=== PATIENT | male | born 1935 | race Hispanic/Latino ===

== ENCOUNTER → 2017-07-22 | Day surgery (SDC) | payer MEDICARE ==
[2017-07-15 15:40] LABS: BASOPHILS % 0.4 % (0.0-1.0); EOSINOPHILS # (AUTO) 0.1 (0.0-0.4); EOSINOPHILS % 3.1 % (0.0-6.0); HEMATOCRIT 35.1 % (38.2-49.6); HEMOGLOBIN 11.9 g/dL (14.0-18.0); LYMPHOCYTES # (AUTO) 1.4 (1.0-3.2); MEAN CORPUSCULAR HEMOGLOBIN 31.5 pg (28-32); MEAN CORPUSCULAR HGB CONC 33.9 g/dL (31-35); MEAN CORPUSCULAR VOLUME 92.9 fL (81-99); MONOCYTES # (AUTO) 0.6 (0.2-0.8); MONOCYTES % 13.8 % (4.4-11.3); NEUTROPHILS # (AUTO) 2.4 (2.1-6.9); NEUTROPHILS % 52.5 % (38.7-80.0); PLATELET COUNT 124 x10e3/uL (140-360); RED BLOOD COUNT 3.78 x10e6/uL (4.3-5.7)
[2017-07-15 15:52] LABS: ANION GAP 12.9 mmol/L (8-16); CREATININE, SERUM 1.35 mg/dL (0.72-1.25); POTASSIUM 3.9 mmol/L (3.5-5.1)
--- NOTE | 2017-07-15 16:14 | Diagnostic Imaging Report ---
PROCEDURE: Frontal and lateral views of the chest. COMPARISON: None. INDICATIONS: PREOPERATIVE CHEST XRAY FOR HYDROCOLECTOMY FINDINGS: Lines/tubes: Left chest wall cardiac pacer with leads overlying the right atrium and right ventricle. Lungs: The lungs are well inflated and clear. There is no evidence of pneumonia or pulmonary edema. Pleura: There is no pleural effusion or pneumothorax. Heart and mediastinum: The heart is moderately enlarged. Median sternotomy wires and surgical clips projecting over the mediastinum likely reflect prior CABG. The inferior-most sternotomy wire is broken, noted on lateral view. Bones: No acute bony abnormality. IMPRESSION: 1. No acute cardiopulmonary disease. 2. Left chest wall cardiac pacer. 3. Findings of prior CABG. 4. Cardiomegaly. Dictated by: Timothy Lockwood M.D. on 07/15/2017 at 16:23 Electronically approved by: Timothy Lockwood M.D. on 07/15/2017 at 16:23
[~2017-07-22] MED LIST: BUPIVACAINE HCL 0.5% INJ 30 ML VIAL INJ ONE; CARVEDILOL12.5 MG PO; CEFAZOLIN SOD 1 GM VIAL ONE; CEFTRIAXONE SOD 1 GM VIAL ONE; DESFLURANE 240 ML BTL INH ONE; DEXAMETHASONE SOD PHOS INJ 4 MG/ML VIAL ONE; DOXAZOSIN MESYLA2 MG PO; FENTANYL CITRATE/PF 100MCG/2 ML INJ ONE; FERROUS SULFAT325 MG PO; FLUNISOLIDE25 ML; FUROSEMIDE40 MG PO; HYDROCHLOROTHIA25 MG PO; LIDOCAINE HCL 1% LOCAL INJ 20 ML VIAL ONE; LIDOCAINE HCL 2% LOCAL INJ 5 ML SDV VIAL INJ ONE; LOSARTAN POTASS25 MG PO; METFORMIN HCL500 M2 PO; NITROGLYCERIN0.4 MG SL; OMEPRAZOLE40 MG PO; ONDANSETRON HCL INJ 2 MG/ML VIAL ONE; PROPOFOL IV EMULSION 10 MG/ML 20 ML VIAL ONE; RANEXA500 MG PO; SIMVASTATIN20 MG PO; WARFARIN SODIUM2 MG PO
--- OUTSIDE RECORDS SUMMARY | 2017-07-22 07:15 | XMS REPORT ---
Author Author [facility] Address Unknown Phone Unavailable Care Team Providers Care Dealer Relationship Manager Name Role Phone TERRANCE MURILLO Unavailable Unavailable PAM CROCKETT Unavailable Unavailable Problems This patient has no known problems. Allergies, Adverse Reactions, Alerts This patient has no known allergies or adverse reactions. Medications This patient has no known medications. Results Test Description Test Time Test Comments Text Results Atomic Results Result Comments TSH 2017-05-27 15:37:00 THYROID STIMULATING HORMONE (BEAKER) (test mqlu=401) 0.91 uIU/mL 0.35-4.94 HEMOGLOBIN [id number] 13:29:00* Test Item Value Reference Range Comments HEMOGLOBIN A1C (BEAKER) (test hghh=262) 6.9 % 4.3-6.1 B-TYPE NATRIURETIC FACTOR (BNP)2017-05-27 11:38:00* Test Item Value Reference Range Comments B-TYPE NATRIURETIC PEPTIDE (BEAKER) (test zubk=336) 125 pg/mL 0-100 LIPID [id number] 11:32:00* Test Item Value Reference Range Comments TRIGLYCERIDES (BEAKER) (test tdqk=383) 70 mg/dL CHOLESTEROL (BEAKER) (test vrwa=804) 105 mg/dL HDL CHOLESTEROL (BEAKER) (test wkgv=189) 48 mg/dL LDL CHOLESTEROL CALCULATED (BEAKER) (test gwgp=093) 43 mg/dL Triglyceride Reference Range: Low Risk <150 Borderline 150-199 High Risk 200-499 Very High Risk >=500Cholesterol Reference Range: Low Risk <200 Borderline 200-239 High Risk >240HDL Cholesterol Reference Range: Low Risk >=60 High Risk <40LDL Cholesterol Reference Range: Optimal <100 Near Optimal 100-129 Borderline 130-159 High 160-189 Very High >=190 BASIC METABOLIC [id number] 11:32:00* Test Item Value Reference Range Comments SODIUM (BEAKER) (test ijok=899) 123 meq/L 136-145 POTASSIUM (BEAKER) (test bymx=211) 3.9 meq/L 3.5-5.1 CHLORIDE (BEAKER) (test gdjs=578) 88 meq/L 98-107 CO2 (BEAKER) (test ufbc=175) 28 meq/L 22-29 BLOOD UREA NITROGEN (BEAKER) (test xvna=196) 13 mg/dL 7-21 CREATININE (BEAKER) (test dyrn=961) 1.07 mg/dL 0.57-1.25 GLUCOSE RANDOM (BEAKER) (test sbim=462) 105 mg/dL 70-105 CALCIUM (BEAKER) (test aazj=159) 8.8 mg/dL 8.4-10.2 EGFR (BEAKER) (test johk=1228) 67 mL/min/1.73 sq m ESTIMATED GFR IS NOT ACCURATE CREATININE CLEARANCE IN PREDICTING GLOMERULAR FILTRATION RATE. ESTIMATED GFR IS NOT APPLICABLE FOR DIALYSIS PATIENTS. PROTHROMBIN TIME/[id number] 10:56:00* Test Item Value Reference Range Comments PROTIME (BEAKER) (test xsej=632) 16.3 seconds 11.7-14.7 INR (BEAKER) (test yryb=077) 1.3 <=5.9 RECOMMENDED COUMADIN/WARFARIN INR THERAPY RANGESSTANDARD DOSE: 2.0 - 3.0 Includes: PROPHYLAXIS for venous thrombosis, systemic embolization; TREATMENT for venous thrombosis and/or pulmonary embolus.HIGH RISK: Target INR is 2.5-3.5 for patients with mechanical heart valves.Within 24 hours, if on CoumadinCBC W/ PLT COUNT & AUTO [id number] 10:50:00* Test Item Value Reference Range Comments WHITE BLOOD CELL COUNT (BEAKER) (test vtsq=142) 4.7 K/ L 3.5-10.5 RED BLOOD CELL COUNT (BEAKER) (test qjkq=127) 3.89 M/ L 4.63-6.08 HEMOGLOBIN (BEAKER) (test xhqb=176) 12.1 GM/DL 13.7-17.5 HEMATOCRIT (BEAKER) (test vqkx=233) 34.7 % 40.1-51.0 MEAN CORPUSCULAR VOLUME (BEAKER) (test ftzq=818) 89.2 fL 79.0-92.2 MEAN CORPUSCULAR HEMOGLOBIN (BEAKER) (test utjb=596) 31.1 pg 25.7-32.2 MEAN CORPUSCULAR HEMOGLOBIN CONC (BEAKER) (test kjlc=492) 34.9 GM/DL 32.3- 36.5 RED CELL DISTRIBUTION WIDTH (BEAKER) (test rxmm=262) 12.2 % 11.6-14.4 PLATELET COUNT (BEAKER) (test qinx=176) 148 K/CU MM 150-450 MEAN PLATELET VOLUME (BEAKER) (test hkud=496) 8.7 fL 9.4-12.4 NUCLEATED RED BLOOD CELLS (BEAKER) (test xquf=853) 0 /100 WBC 0-0 NEUTROPHILS RELATIVE PERCENT (BEAKER) (test npmt=541) 58 % LYMPHOCYTES RELATIVE PERCENT (BEAKER) (test ssgh=637) 26 % MONOCYTES RELATIVE PERCENT (BEAKER) (test lces=135) 13 % EOSINOPHILS RELATIVE PERCENT (BEAKER) (test toav=003) 2 % BASOPHILS RELATIVE PERCENT (BEAKER) (test jypu=471) 0 % NEUTROPHILS ABSOLUTE COUNT (BEAKER) (test yhcj=622) 2.70 K/ L 1.78-5.38 LYMPHOCYTES ABSOLUTE COUNT (BEAKER) (test krxr=363) 1.24 K/ L 1.32-3.57 MONOCYTES ABSOLUTE COUNT (BEAKER) (test cnvg=844) 0.63 K/ L 0.30-0.82 EOSINOPHILS ABSOLUTE COUNT (BEAKER) (test etcn=269) 0.08 K/ L 0.04-0.54 BASOPHILS ABSOLUTE COUNT (BEAKER) (test uzjq=999) 0.02 K/ L 0.01-0.08 IMMATURE GRANULOCYTES-RELATIVE PERCENT (BEAKER) (test xvnj=3846) 0 % 0-1 CHEST 2 VIEWS [facility] [address] [address] Patient Name: VANDANA JOHNSON MR #: [id number] : 1935 Age/Sex: 81/M Req #: [id number] Adm Physician: Ordered by: TERRANCE MURILLO MD Report #: [id number] Location: OR Room/Bed: Procedure: [id number] DX/CHEST 2 VIEWS Exam Date: 07/15/17 Exam Time: 1500 REPORT STATUS: Signed PROCEDURE: Frontal and lateral views of the chest. COMPARISON: None. INDICATIONS: PREOPERATIVE CHEST XRAY FOR HYDROCOLECTOMY FINDINGS: Lines/tubes: Left chest wall cardiac pacer with leads overlying the right atrium and right ventricle. Lungs : The lungs are well inflated and clear. There is no evidence of pneumonia or pulmonary edema. Pleura: There is no pleural effusion or pneumothorax. Heart and mediastinum: The heart is moderately enlarged. Median sternotomy wires and surgical clips projecting over the mediastinum likely reflect prior CABG. The inferior-most sternotomy wire is broken, noted on lateral view. Bones: No acute bony abnormality. IMPRESSION: 1. No acute cardiopulmonary disease. 2. Left chest wall cardiac pacer. 3. Findings of prior CABG. 4. Cardiomegaly. Dictated by: Timothy Fontenot M.D. on 07/15/2017 at 16:23 Electronically approved by: Timothy Fontenot M.D. on 07/15/2017 at 16:23 Dictated By: TIMOTHY FONTENOT MD 1623 COPY TO: TERRANCE MURILLO MD
--- NOTE | 2017-08-01 14:11 | Operative Report ---
DATE OF PROCEDURE: July 22, 2017 PREOPERATIVE DIAGNOSIS: Right spermatocele. POSTOPERATIVE DIAGNOSIS: Right spermatocele. OPERATIVE PROCEDURE PERFORMED: Right spermatocelectomy. ANESTHESIA: General anesthesia. ESTIMATED BLOOD LOSS: Minimal.. INDICATION: Mr. 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 He now presents for definitive surgical management of this problem. PROCEDURE IN DETAIL: The patient was brought into the operating room and placed in the supine position and, after the administration of general anesthesia, was prepped and draped in the usual sterile fashion. A horizontal incision was made over the right hemiscrotum, and dissection was carried out through the layers of the scrotum. Hemostasis was obtained using the electrocautery device. The tunica vaginalis was entered. The testicle and its contents were removed. 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 Using the iris scissors, this was largely dissected away from its surrounding testicular structures. However, given its location close to the main vessels, the decision was made to marsupialize this cyst rather than remove it in its entirety. Once all of the cyst structures and dobbs were opened, the cut edges of the spermatocele were oversewn using interrupted chromic sutures in a quadrant fashion. A small portion of the wall was removed for pathological diagnosis. Once adequate hemostasis was secured, the testicle was returned to its normal anatomical position in the scrotum. A 1/4-inch Agnieszka drain was placed such that it was including the inferior portion of the scrotum. This was secured to the skin using a chromic suture. The scrotum was then closed in layers using running chromic sutures. The wound was then cleaned and dried and covered with Telfa, sterile fluffs, and draped in a scrotal support. Anesthesia was reversed, and the patient was transferred to a bed and taken to the postanesthesia care unit in good condition. Of note, the needle and instrument counts were correct at the conclusion of the case. Job#: [id number] EV
== END | disposition home or self-care (01) ==
LOC: OR 07:13
PROVIDERS: ATTEND Urology
DX: N43.41 Spermatocele of epididymis, single (principal); N32.0 Bladder-neck obstruction; I25.810 Atherosclerosis of coronary artery bypass graft(s) without angina pectoris; I48.91 Unspecified atrial fibrillation; I13.0 Hypertensive heart and chronic kidney disease with heart failure and stage 1 through stage 4 chronic kidney disease, or unspecified chronic kidney disease; N18.9 Chronic kidney disease, unspecified; I50.9 Heart failure, unspecified; K58.9 Irritable bowel syndrome, unspecified; G47.30 Sleep apnea, unspecified; E11.22 Type 2 diabetes mellitus with diabetic chronic kidney disease; K21.9 Gastro-esophageal reflux disease without esophagitis; Z01.810 Encounter for preprocedural cardiovascular examination; Z01.812 Encounter for preprocedural laboratory examination; Z01.818 Encounter for other preprocedural examination; Z79.01 Long term (current) use of anticoagulants; Z95.1 Presence of aortocoronary bypass graft
CPT/HCPCS: 36415 ×2; 54840; 71020; 71046; 80048; 82948; 85025; 88304; 93005; 97139; J0696; J1100; J2001; J2405; J0690

== ENCOUNTER → 2018-03-03 | Day surgery (SDC) | payer MEDICARE ==
[2018-02-24 15:52] LABS: BASOPHILS % 0.3 % (0.0-1.0); EOSINOPHILS # (AUTO) 0.1 (0.0-0.4); EOSINOPHILS % 1.1 % (0.0-6.0); HEMATOCRIT 38.1 % (38.2-49.6); HEMOGLOBIN 13.1 g/dL (14.0-18.0); LYMPHOCYTES # (AUTO) 1.6 (1.0-3.2); LYMPHOCYTES % 21.8 % (18.0-39.1); MEAN CORPUSCULAR HEMOGLOBIN 31.6 pg (28-32); MEAN CORPUSCULAR HGB CONC 34.4 g/dL (31-35); MONOCYTES # (AUTO) 0.9 (0.2-0.8); MONOCYTES % 12.5 % (4.4-11.3); NEUTROPHILS # (AUTO) 4.8 (2.1-6.9); PLATELET COUNT 134 x10e3/uL (140-360); RED BLOOD COUNT 4.14 x10e6/uL (4.3-5.7); RED CELL DISTRIBUTION WIDTH 12.4 % (11.7-14.4)
[2018-02-24 16:20] LABS: ANION GAP 14.8 mmol/L (8-16); CALCIUM 9.7 mg/dL (8.4-10.2); CARBON DIOXIDE 26 mmol/L (22-29); CHLORIDE 89 mmol/L (98-107); CREATININE, SERUM 1.14 mg/dL (0.72-1.25); EST GLOMERULAR FILTRATION RATE > 60 ML/MIN (60-); GLUCOSE 94 mg/dL (74-118); POTASSIUM 4.8 mmol/L (3.5-5.1); SODIUM 125 mmol/L (136-145)
[2018-02-24 16:37] LABS: BLOOD UREA NITROGEN 17 mg/dL (7-26); BUN/CREATININE RATIO 15 (6-25)
[~2018-03-03] MED LIST changes: -BUPIVACAINE HCL 0.5% INJ 30 ML VIAL INJ ONE; -CEFAZOLIN SOD 1 GM VIAL ONE; -DESFLURANE 240 ML BTL INH ONE; -DEXAMETHASONE SOD PHOS INJ 4 MG/ML VIAL ONE; -LIDOCAINE HCL 1% LOCAL INJ 20 ML VIAL ONE; +SEVOFLURANE INHAL SOLN 250 ML PEN BTL ONE; +SODIUM CHLORIDE 0.9% 1000ML 1,000 ML ONE
[2018-03-03 12:02] LABS: PROTHROMBIN TIME 14.1 seconds (11.9-14.5)
[2018-03-03 12:03] LABS: PARTIAL THROMBOPLASTIN TIME 28.6 seconds (23.8-35.5)
[2018-03-03 12:28] LABS: ANION GAP 15.8 mmol/L (8-16); BLOOD UREA NITROGEN 14 mg/dL (7-26); BUN/CREATININE RATIO 13 (6-25); CALCIUM 9.1 mg/dL (8.4-10.2); CARBON DIOXIDE 22 mmol/L (22-29); CHLORIDE 92 mmol/L (98-107); CREATININE, SERUM 1.04 mg/dL (0.72-1.25); EST GLOMERULAR FILTRATION RATE > 60 ML/MIN (60-); GLUCOSE 93 mg/dL (74-118); POTASSIUM 3.8 mmol/L (3.5-5.1); SODIUM 126 mmol/L (136-145)
[2018-03-03 16:32] VITALS: BP 137/80
--- NOTE | 2018-03-12 18:10 | Operative Report ---
DATE OF PROCEDURE: March 03, 2018 PREOPERATIVE DIAGNOSIS: Right orchialgia. POSTOPERATIVE DIAGNOSIS: Right orchialgia. PROCEDURE PERFORMED: Right simple orchiectomy. ANESTHESIA: General anesthesia. ESTIMATED BLOOD LOSS: Minimal. INDICATIONS: Mr. Jay Flood is an 82-year-old gentleman who previously underwent a right hydrocelectomy, who has had continued intractable right testicular pain, which has failed conservative management. He now presents for definitive management of this problem. PROCEDURE IN DETAIL: The patient was brought into the operating room, placed in supine position. After administration of general anesthesia, he was prepped and draped in usual sterile fashion. A horizontal incision was made over the right hemiscrotum and dissection was carried down through the layers of the scrotum. Due to the prior surgery done on this side, there was significant scarring between the testicle and the tunica vaginalis. It was; however; ultimately removed. The patient was noted to have a moderate-size right spermatocele as well. The cord was completely identified, clamped, and sewn with a silk tie. The cut edges of the cord were then fulgurated with the electrocautery device. The right testicle was removed and sent to pathology for microscopic analysis. The scrotum was copiously irrigated and hemostasis obtained using electrocautery device. Once adequate hemostasis was secured, the scrotum was closed in layers, the skin being closed with a running chromic stitch. The wound was then cleaned and dried and covered with Telfa. Sterile fluffs and placed in a scrotal support. Anesthesia was reversed and patient was transferred to a bed and taken to postanesthesia care unit in good condition. Of note, the needle and instrument count were correct at the conclusion of the case. Job#: [id number] PAO
== END | disposition home or self-care (01) ==
LOC: OR 11:05
PROVIDERS: ATTEND Urology
DX: N45.2 Orchitis (principal); N43.40 Spermatocele of epididymis, unspecified; I48.91 Unspecified atrial fibrillation; I11.0 Hypertensive heart disease with heart failure; I50.9 Heart failure, unspecified; G47.30 Sleep apnea, unspecified; K58.9 Irritable bowel syndrome, unspecified; F41.9 Anxiety disorder, unspecified; R53.1 Weakness; K21.9 Gastro-esophageal reflux disease without esophagitis; E78.00 Pure hypercholesterolemia, unspecified; Z01.810 Encounter for preprocedural cardiovascular examination; Z01.812 Encounter for preprocedural laboratory examination; Z68.41 Body mass index [BMI] 40.0-44.9, adult; Z79.01 Long term (current) use of anticoagulants; Z79.84 Long term (current) use of oral hypoglycemic drugs; Z95.0 Presence of cardiac pacemaker; Z95.1 Presence of aortocoronary bypass graft; Z87.891 Personal history of nicotine dependence
CPT/HCPCS: 36415 ×2; 54520; 80048 ×2; 82948; 85025; 85610; 85730; 88307; 93005; J0696; J2001; J2405; J7030; 88305